=== PATIENT | female | born 1975 | race American Indian/Alaskan Native ===

== ENCOUNTER 2017-07-23 11:28 | Emergency (ER) | payer SELFPAY ==
--- NOTE | 2017-07-23 14:26 | XRay Report ---
RIGHT HAND, 3 views: History: Pain and swelling. The bony architecture is intact. Bony alignment is normal. No soft tissue abnormalities are seen. The joint spaces appear preserved. IMPRESSION: Right hand within normal limits.
--- NOTE | 2017-07-23 17:18 | Emergency Department Report ---
Upper Extremity - HPI Chief Complaint: Extremity Problem,Nontraumatic Stated Complaint: RIGHT HAND PAIN Time Seen by Provider: 07/23/17 16:40 Upper Extremity: Right Hand Severity: moderate Symptoms: Yes Pain with Movement, Yes Weakness, Yes Swelling, No Deformity, No Limited Range of Movement, No Numbness, No Bruising/Ecchymosis, No Laceration or Abrasion Other History: 42-year-old female past medical history none presents with complaint of 2 days of right hand pain swelling and discomfort. Patient denies any direct trauma. 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 Patient denies any fevers or chills denies any lacerations or abrasions. Patient is awake alert and oriented 3 nontoxic appearing. Pain currently 7 out of 10. Patient has some visible swelling of distal right third and fourth MCP regions. ED Review of Systems ROS: Stated complaint: RIGHT HAND PAIN Other details as noted in HPI Constitutional: denies: chills, fever Eyes: denies: eye pain, eye discharge, vision change ENT: denies: ear pain, throat pain Respiratory: denies: cough, shortness of breath, wheezing Cardiovascular: denies: chest pain, palpitations Endocrine: no symptoms reported Gastrointestinal: denies: abdominal pain, nausea, diarrhea Genitourinary: denies: urgency, dysuria, discharge Musculoskeletal: arthralgia (right hand since yesterday). denies: back pain, joint swelling Skin: denies: rash, lesions Neurological: denies: headache, weakness, paresthesias Psychiatric: denies: anxiety, depression Hematological/Lymphatic: denies: easy bleeding, easy bruising ED Past Medical Hx - Past Medical History Previous Medical History?: No - Surgical History Past Surgical History?: No - Social History Smoking Status: Current Every Day Smoker Substance Use Type: None - Medications Home Medications: Home Medications Medication Instructions Recorded Confirmed Last Taken Type Docusate Sodium [Colace] 100 mg PO DAILY #30 capsule 09/20/15 Unknown Rx Iron,Carbonyl/Ascorbic Acid [Iron 1 each PO BID #60 tablet 09/20/15 Unknown Rx 100-Vitamin C Tablet] Acetaminophen/Codeine [Tylenol 1 tab PO Q6H PRN #12 tab 07/23/17 Unknown Rx /Codeine # 3 tab] Clindamycin [Clindamycin CAP] 300 mg PO Q6H #28 capsule 07/23/17 Unknown Rx Ibuprofen [Motrin] 600 mg PO Q8H PRN #30 tablet 07/23/17 Unknown Rx Upper Extremity Exam - Exam General: Vital signs noted. No distress. Alert and acting appropriately. Head and Torso: No HEENT Abnormality, No Neck Tenderness, No Chest/Lungs Abnormality, No Abdominal Tenderness, No Back Tenderness Shoulder Exam: Yes Normal Range of Motion in Shoulder, No Shoulder Tenderness, No Clavicle Tenderness, No Shoulder Deformity, No AC Joint Tenderness Arm Exam: No Arm/Humerus Tenderness, No Arm Deformity Elbow: Yes Normal Range of Motion in Elbow, No Elbow Tenderness, No Elbow Deformity Forearm: No Forearm Tenderness, No Pain with Pronation, No Pain with Supination Wrist: Yes Normal ROM in Wrist (wrist flexion and extension fully intact), No Wrist Tenderness, No Wrist Deformity, No Snuffbox Tenderness, No Pain with Axial Thumb Compression Hand: Yes Hand Tenderness (some tenderness on deep palpation right second and third MCP joints), Yes Normal ROM in Digit(s) (DIP PIP and MCP range of motion intact right hand all fingers), No Hand Deformity, No Digit Tenderness (some right middle finger and right ring finger inflammation and discomfort), No Digit (s) Deformity, No Tendon Dysfunction CMS Exam: Yes Normal Distal Pulses (distal capillary refill and distal pulses strong to palpation. Distal radial brachial and ulnar pulses strong to palpation right upper extremity), Yes Normal Capillary Refill, Yes Normal Distal Sensation, No Broken Skin Hand L/R Back: 1 - Some swelling and discomfort here. No visible erythema or palpable heat. No induration on palpation no fluctuance. ED Course Vital Signs 07/23/17 11:36 Temperature 98.4 F Pulse Rate 85 Respiratory 16 Rate Blood Pressure 105/60 O2 Sat by Pulse 98 Oximetry ED Medical Decision Making - Medical Decision Making A/P: Right hand/finger tendinitis versus tenosynovitis 1-no overt signs of induration and fluctuance or large patch of erythema. Treat patient empirically based on symptoms 2-Motrin when necessary, Tylenol No. 3 when necessary, 3-empiric course of clindamycin to cover both staph aureus and strep, possible early tenosynovitis [email or web address] 4-x-ray unremarkable. Right hand neurovascularly intact on clinical exam Critical care attestation.: If time is entered above; I have spent that time in minutes in the direct care of this critically ill patient, excluding procedure time. ED Disposition Clinical Impression: Tenosynovitis of right hand, Tendinitis of finger of right hand Disposition: DC- TO HOME OR SELFCARE Is pt being admited?: No Does the pt Need Aspirin: No Condition: Stable Instructions: RICE Therapy (ED), Tenosynovitis (ED), Tendinitis (ED) Prescriptions: Acetaminophen/Codeine [Tylenol /Codeine # 3 tab] 1 tab PO Q6H PRN #12 tab PRN Reason: Pain Clindamycin [Clindamycin CAP] 300 mg PO Q6H #28 capsule Ibuprofen [Motrin] 600 mg PO Q8H PRN #30 tablet PRN Reason: Pain Referrals: [facility] [Outside] - 3-5 Days [facility] [Outside] - 3-5 Days Forms: Work/School Release Form(ED) Time of Disposition: 17:23
[2017-07-23] MEDS ORDERED: MOTRIN PO ONE (17:27)
[2017-07-23] MEDS ORDERED: NORCO 5/325 PO ONE (17:27)
[2017-07-23 17:55] VITALS: BP 108/60
== END 2017-07-23 17:54 | disposition home or self-care (01) ==
LOC: ED 11:28
DX: M65.841 Other synovitis and tenosynovitis, right hand (principal); M77.8 Other enthesopathies, not elsewhere classified; F17.200 Nicotine dependence, unspecified, uncomplicated

== ENCOUNTER 2017-11-28 11:53 | Observation (INO) | payer SELFPAY ==
[2017-11-28 12:35] LABS: Bilirubin,Urine NEG (Negative); Blood,Urine LG (Negative); Color,Urine Yellow (Yellow); Mucus,Urine FEW /HPF; Protein,Urine <15 mg/dL mg/dL (Negative); Urobilinogen,Urine < 2.0 mg/dL (<2.0)
[2017-11-28 13:05] LABS: Hemoglobin 2.5 gm/dl (10.1-14.3); Red Blood Count 1.62 M/mm3 (3.65-5.03)
[2017-11-28 13:06] LABS: Hematocrit 9.6 % (30.3-42.9); Mean Corpuscular HGB Conc 26 % (30-34); Mean Corpuscular Hemoglobin 16 pg (28-32); Mean Corpuscular Volume 59 fl (79-97); Platelet Count 50 K/mm3 (140-440); Red Cell Distribution Width 38.7 % (13.2-15.2)
[2017-11-28 13:13] LABS: Albumin 3.9 g/dL (3.9-5); BUN/Creatinine Ratio 12; Blood Urea Nitrogen 7 mg/dL (7-17); Calcium 8.5 mg/dL (8.4-10.2); Hemolysis Index 0
[2017-11-28 13:21] LABS: Alanine Aminotransferase 5 units/L (7-56)
[2017-11-28 13:40] LABS: Anisocytosis 2+; Band Neutrophils # (Manual) 0.4 K/mm3; Eosinophils % (Manual) 0 % (0.0-4.3); Hypochromasia 3+; Macrocytosis 1+; Poikilocytosis 1+; Stomatocytes 1+; Total Cells Counted 100
[2017-11-28 13:41] LABS: Ovalocytes 1+; Platelet Estimate Consistent w Auto
[2017-11-28] MEDS ORDERED: NACL 0.9% 500 ML 500 ML IV ONE (13:44)
--- NOTE | 2017-11-28 13:49 | Emergency Department Report ---
HPI - General Chief Complaint: Dizziness Time Seen by Provider: 11/28/17 12:47 - HPI HPI: The patient is a 41-year-old female who presents for evaluation of generalized weakness and dyspnea. The patient reports 4 days of severe constant weakness and intermittent dyspnea, worsened with exertion, improved at rest, present with progressive since her last menstrual period. She shares that she has a history of fibroids and severe vaginal bleeding and severe anemia requiring blood transfusion in the past. She has not expressed any vaginal bleeding within the past couple of days. The patient denies fever, chills, night sweats, chest pain, syncope, hemoptysis, hematemesis, hematuria, blood in the stool, easy bleeding or bruising, or blood thinner use. ED Past Medical Hx - Past Medical History Additional medical history: FIBROIDS AND OVARIAN CYST - Surgical History Past Surgical History?: No - Social History Smoking Status: Current Every Day Smoker Substance Use Type: None - Medications Home Medications: Home Medications Medication Instructions Recorded Confirmed Last Taken Type Docusate Sodium [Colace] 100 mg PO DAILY #30 capsule 09/20/15 Unknown Rx Iron,Carbonyl/Ascorbic Acid [Iron 1 each PO BID #60 tablet 09/20/15 Unknown Rx 100-Vitamin C Tablet] Acetaminophen/Codeine [Tylenol 1 tab PO Q6H PRN #12 tab 07/23/17 Unknown Rx /Codeine # 3 tab] Clindamycin [Clindamycin CAP] 300 mg PO Q6H #28 capsule 07/23/17 Unknown Rx Ibuprofen [Motrin] 600 mg PO Q8H PRN #30 tablet 07/23/17 Unknown Rx ED Review of Systems ROS: Stated complaint: BLURRED VISION HEAVY BLEEDING WITH CYCLE Other details as noted in HPI Constitutional: Reports generalized weakness denies: fever ENT: denies: throat or neck pain Respiratory: denies: cough reports shortness of breath Cardiovascular: denies: chest pain Endocrine: denies unexplained weight loss or gain Gastrointestinal: denies: abdominal pain, nausea Genitourinary: denies: dysuria Musculoskeletal: denies: leg swelling Skin: denies: rash Neurological: denies: headache Hematological/Lymphatic: denies: easy bleeding or easy bruising Psych: denies sadness or hopelessness Physical Exam - Physical Exam Vital Signs: Vital Signs 11/28/17 11:59 Temperature 99.6 F Pulse Rate 97 H Respiratory 16 Rate Blood Pressure 106/42 O2 Sat by Pulse 100 Oximetry Physical Exam: General: well-nourished, well-developed, no acute distress Head: Normocephalic, atraumatic Eyes: normal sclera ENT: Mucous membranes are pale and dry Neck: trachea midline, neck supple, No neck stiffness, no cervical adenopathy Respiratory: Breath sounds equal bilaterally, no wheezing, rales, or rhonchi Cardio: S1 and S2 present, no murmurs, rubs, gallops, capillary refill is delayed Abdomen: Normoactive bowel sounds, soft abdomen, no rigidity, no guarding or rebound tenderness Musc: No pitting edema Skin: No rash Neuro: no facial drooping, normal speech Psych: Normal affect ED Course Vital Signs 11/28/17 11:59 Temperature 99.6 F Pulse Rate 97 H Respiratory 16 Rate Blood Pressure 106/42 O2 Sat by Pulse 100 Oximetry ED Medical Decision Making - Lab Data Result diagrams: 11/28/17 12:30 11/28/17 12:30 - Medical Decision Making The patient was seen and examined by myself. The patient is placed on a school bus monitor and continuous pulse ox. On initial evaluation, the patient was found to be in no distress. Evaluation orders were placed. The patient given normal saline fluid bolus. Lab results reveal severely low hemoglobin of 2.5. CT shows of PRBCs were ordered for treatment of the patient's severe anemia and weakness. The on-call hospitalist service was contacted. They agreed to admit the patient for further treatment and close monitoring. The ED admit order was placed. The patient was admitted in guarded condition. Critical care attestation.: If time is entered above; I have spent that time in minutes in the direct care of this critically ill patient, excluding procedure time. ED Disposition Clinical Impression: Iron deficiency anemia due to chronic blood loss, Severe anemia, Anemia requiring transfusions Disposition: OP ADMIT IP TO THIS HOSP Is pt being admited?: Yes Does the pt Need Aspirin: Yes Condition: Serious Referrals: PRIMARY CARE, [Primary Care Provider] - 3-5 Days Time of Disposition: 13:22
[2017-11-28] MEDS ORDERED: NACL 0.9% 1000 ML 1,000 ML IV ONE (13:55)
[2017-11-28 13:57] LABS: Mean Corpuscular HGB Conc 27 % (30-34); Red Blood Count 1.68 M/mm3 (3.65-5.03)
[2017-11-28 14:03] LABS: Mean Corpuscular Hemoglobin 16 pg (28-32); Mean Corpuscular Volume 59 fl (79-97); Platelet Count 49 K/mm3 (140-440); Red Cell Distribution Width 38.7 % (13.2-15.2)
[2017-11-28 14:07] LABS: Hematocrit 9.9 % (30.3-42.9); Hemoglobin 2.7 gm/dl (10.1-14.3)
--- NOTE | 2017-11-28 14:39 | History and Physical Report ---
History of Present Illness Chief complaint: I feel weak History of present illness: 41 YO Female with Uterine Fibroids, Menorrhagia, Anemia, Noncompliance with Iron therapy, Nicotine Dependence ETOH Dependence presents to ED for evaluation. Pt found to have anemia and treated with PRBC and platelet transfusion in ED. Pt medically optimized and back to usual state of health. Pt counseled regarding need for hysterectomy, or definitive treatment for fibroids , as well as the need for iron therapy. Pt acknowledges understanding instructions. Pt discharged home and instructed to f/u pcp 1wk, [facility] 1 wk for further care. Past History Past Medical History: anemia, other (Fibroids. ) Past Surgical History: No surgical history, Other (reviewed) Social history: single, smoking Family history: no significant family history (reviewed) Medications and Allergies Allergies Allergy/AdvReac Type Severity Reaction Status Date / Time No Known Allergies Allergy Verified 11/28/17 11:59 Home Medications Medication Instructions Recorded Confirmed Last Taken Type Ferrous Sulfate [Ferrous Sulfate 300 mg PO BID #300 ml 11/28/17 Unknown Rx Oral Liq 300 Mg/5 Ml] Sennosides/Docusate Sodium 1 each PO BID #30 tablet 11/28/17 Unknown Rx [Senna-Docusate Sodium Tablet] Active Meds: Active Medications Sodium Chloride (Nacl 0.9% 1000 Ml) 1,000 mls @ 999 mls/hr IV BOLUS ONE Stop: 11/28/17 14:55 Review of Systems Constitutional: weakness, no weight loss, no weight gain, no fever, no chills, no sweats, no night sweats Ears, nose, mouth and throat: no ear pain, no ear discharge, no tinnitis, no decreased hearing, no nose pain, no nasal congestion, no nasal discharge, no sinus pressure Breasts: no change in shape, no swelling, no mass Cardiovascular: no chest pain, no orthopnea, no palpitations, no rapid/ irregular heart beat, no edema, no syncope Respiratory: shortness of breath, no cough, no cough with sputum, no excessive sputum, no hemoptysis Gastrointestinal: no nausea, no vomiting, no diarrhea, no constipation, no change in bowel habits Genitourinary Female: menorrhagia, no dysmenorrhea, no pelvic pain, no flank pain, no nocturia, no vaginal itching, no vaginal discharge, no vaginal odor, no abnormal vaginal bleeding, no genital sores, no vaginal dryness Rectal: no pain, no incontinence, no bleeding Musculoskeletal: no neck stiffness, no neck pain, no shooting arm pain, no arm numbness/tingling, no low back pain, no shooting leg pain Integumentary: no rash, no pruritis, no redness, no sores, no wounds, no jaundice, no boils Neurological: no head injury, no transient paralysis, no paralysis, no weakness , no parathesias, no numbness, no tingling, no seizures Psychiatric: no anxiety, no memory loss, no change in sleep habits, no sleep disturbances, no insomnia, no hypersomnia, no change in appetite Endocrine: no cold intolerance, no heat intolerance, no polyphagia, no excessive thirst, no polydipsia, no polyuria, no nocturia Hematologic/Lymphatic: no easy bruising, no easy bleeding, no lymphadenopathy, no lymphedema Allergic/Immunologic: no urticaria, no allergic rhinitis, no wheezing, no persistent infections, no anaphylaxis, no angioedema Exam - Constitutional Vitals: Temp Pulse Resp BP Pulse Ox 99.6 F 97 H 16 106/42 100 11/28/17 11:59 11/28/17 11:59 11/28/17 11:59 11/28/17 11:59 11/28/17 11:59 General appearance: Present: mild distress - EENT Eyes: Present: PERRL (conjunctival pallor) ENT: hearing intact, clear oral mucosa - Neck Neck: Present: supple, normal ROM - Respiratory Respiratory effort: normal Respiratory: bilateral: CTA - Cardiovascular Heart Sounds: Present: S1 & S2. Absent: rub, click - Extremities Extremities: pulses symmetrical, No edema Peripheral Pulses: within normal limits - Abdominal General gastrointestinal: Present: soft, non-tender, non-distended, normal bowel sounds Female genitourinary: Present: normal - Integumentary Integumentary: Present: clear, warm, dry - Musculoskeletal Musculoskeletal: gait normal, strength equal bilaterally - Psychiatric Psychiatric: appropriate mood/affect, intact judgment & insight - Neurologic Neurologic: CNII-XII intact, moves all extremities Results - Labs CBC & Chem 7: 11/28/17 13:15 11/28/17 12:30 Labs: Abnormal lab results 11/28/17 11/28/17 11/28/17 Range/Units 12:30 12:30 12:30 RBC 1.62 L (3.65-5.03) M/mm3 Hgb 2.5 L* (10.1-14.3) gm/dl Hct 9.6 L* (30.3-42.9) % MCV 59 L (79-97) fl MCH 16 L (28-32) pg MCHC 26 L (30-34) % RDW 38.7 H (13.2-15.2) % Plt Count 50 L (140-440) K/mm3 Monocytes % (Manual) 10.0 H (0.0-7.3) % Basophils % (Manual) 4.0 H (0.0-1.8) % Basophils # (Manual) 0.3 H (0.0-0.1) K/mm3 Sodium 136 L (137-145) mmol/L Potassium 3.2 L (3.6-5.0) mmol/L Creatinine 0.6 L (0.7-1.2) mg/dL ALT 5 L (7-56) units/L Crossmatch See Detail 11/28/17 Range/Units 13:15 RBC 1.68 L (3.65-5.03) M/mm3 Hgb 2.7 L* (10.1-14.3) gm/dl Hct 9.9 L* (30.3-42.9) % MCV 59 L (79-97) fl MCH 16 L (28-32) pg MCHC 27 L (30-34) % RDW 38.7 H (13.2-15.2) % Plt Count 49 L (140-440) K/mm3 Monocytes % (Manual) (0.0-7.3) % Basophils % (Manual) (0.0-1.8) % Basophils # (Manual) (0.0-0.1) K/mm3 Sodium (137-145) mmol/L Potassium (3.6-5.0) mmol/L Creatinine (0.7-1.2) mg/dL ALT (7-56) units/L Crossmatch Assessment and Plan - Patient Problems (1) Anemia requiring transfusions Current Visit: Yes Status: Acute Plan to address problem: PRBC Transfusion, Platelet Transfusion, D/C home, f/u [facility] within 1 wk for further care and evaluation. (2) Iron deficiency anemia due to chronic blood loss Current Visit: Yes Status: Chronic Plan to address problem: Iron replacement therapy, stool softener, (3) Uterine leiomyoma Current Visit: No Status: Chronic Qualifiers: Uterine leiomyoma location: unspecified location Qualified Code(s): D25.9 - Leiomyoma of uterus, unspecified Plan to address problem: Outpatient [facility] F/U care.
[2017-11-28] MEDS ORDERED: NACL 0.9% 500 ML 500 ML IV NR (14:41)
[2017-11-29 00:50] LABS: Hematocrit 22.6 % (30.3-42.9); Hemoglobin 7.4 gm/dl (10.1-14.3); Mean Corpuscular HGB Conc 33 % (30-34); Mean Corpuscular Volume 77 fl (79-97); Red Blood Count 2.93 M/mm3 (3.65-5.03)
[2017-11-29 01:05] LABS: Mean Corpuscular Hemoglobin 25 pg (28-32); Platelet Count 63 K/mm3 (140-440); Red Cell Distribution Width 33.9 % (13.2-15.2)
[2017-11-29] MEDS ORDERED: TYLENOL PO PRN ×2 (01:26→05:55)
[2017-11-29 03:12] LABS: Anisocytosis 1+; Band Neutrophils # (Manual) 0.5 K/mm3; Basophils % (Manual) 0 % (0.0-1.8); Eosinophils % (Manual) 0 % (0.0-4.3); Hypochromasia 2+; Total Cells Counted 100
[2017-11-29 03:13] LABS: Platelet Estimate Consistent w Auto
[2017-11-29] MEDS ORDERED: MORPHINE IV PRN (05:55)
[2017-11-29] MEDS ORDERED: SODIUM CHLORIDE FLUSH SYRINGE 10 ML IV PRN (05:55)
[2017-11-29] MEDS ORDERED: PERCOCET 5/325 PO PRN (05:55)
[2017-11-29] MEDS ORDERED: ZOFRAN IV PRN (05:55)
--- NOTE | 2017-11-29 05:55 | Event Note ---
Date: 11/28/17 Patient was discharged by Dr Nassar B/c of Low Hemoglobin and Corporation Lawyer consult patient was admitted See H/P
[2017-11-29] MEDS ORDERED: NACL 0.9% 1000 ML 1,000 ML IV SCH (06:00)
[2017-11-29 06:48] LABS: Hematocrit 22.8 % (30.3-42.9); Hemoglobin 7.5 gm/dl (10.1-14.3); Mean Corpuscular HGB Conc 33 % (30-34); Mean Corpuscular Volume 77 fl (79-97); Red Blood Count 2.98 M/mm3 (3.65-5.03)
[2017-11-29 07:04] LABS: Mean Corpuscular Hemoglobin 25 pg (28-32); Red Cell Distribution Width 32.8 % (13.2-15.2)
[2017-11-29 07:05] LABS: Platelet Count 49 K/mm3 (140-440)
[2017-11-29 07:12] LABS: Alanine Aminotransferase 56 units/L (7-56); Albumin 3.6 g/dL (3.9-5); BUN/Creatinine Ratio 13; Blood Urea Nitrogen 5 mg/dL (7-17); Calcium 7.9 mg/dL (8.4-10.2); Hemolysis Index 1
[2017-11-29] MEDS ORDERED: K-DUR PO ONE (07:59)
--- NOTE | 2017-11-29 08:11 | Progress Note ---
Assessment and Plan Assessment and plan: Ms. Overton is a 41 yo woman with a history of chronic anemia, uterine Fibroids, Menorrhagia, Noncompliance with Iron therapy, Nicotine Dependence and ETOH Dependence who presented with weakness and [place]. She was found to have a hemoglobin of 2.5 with a MCV of 59, platelet count of 49. She was also hypotensive with bp 88/45 which she received normal saline IV fluid resuscitation bolus. She has received 4 units of prbc and 1 unit of platelet -Acute on chronic blood loss anemia: ordered FOBT, will transfuse another unit of prbc -Menorrhagia: consulted occ ther -Tobacco dependency: intellectual property counsel on stopping -Alcohol dependency: ciky protocol -Uterine Fibroids: pelvic and transvaginal u/s pending -Hypotension s/p fluid bolus resolved -Hypokalemia: replace, recheck in am -Thrombocytopenia s/p plt transfusion: consulted heme/onc -Suspect Iron Deficiency Anemia: ordered iron studies and ferritin CCT 32 minutes History Interval history: Patient was seen and examined. Follow-up on current diagnosis. Overnight uneventful. Patient denies any chest pain, shortness breath, nausea/vomiting or severe headaches. Imaging, nursing note, chart, labs and old chart reviewed. Discussed with patient. Hospitalist Physical - Physical exam Narrative exam: GEN: WDWN, NAD, Awake, Alert, Orientated x 3 HEENT: NCAT, EOMI, PERRL, OP Clear NECK: supple, no adenopathy, no thyromegaly, no JVD CVS/HEART: RRR, normal S1S2, pulses present bilaterally CHEST/LUNGS: CTA B, Symmetrical chest expansion, good air entry bilaterally GI/Abdomen: soft, NTND, good bowel sounds, no guarding or rebound /Bladder: no suprapubic tenderness, no CVA or paraspinal tenderness EXT/Skin: no c/c/e, no obvious rash MSK: FROM x 4 Neuro: CN 2-12 grossly intact, no new focal deficits Psych: calm - Constitutional Vitals: Temp Pulse Resp BP Pulse Ox 99.5 F 71 18 125/72 100 11/29/17 01:29 11/29/17 01:29 11/29/17 01:29 11/29/17 01:29 11/29/17 01:29 General appearance: Absent: mild distress Results - Labs CBC & Chem 7: 11/29/17 06:23 11/29/17 06:23 Labs: Laboratory Last Values WBC 7.2 K/mm3 (4.5-11.0) 11/29/17 06:23 RBC 2.98 M/mm3 (3.65-5.03) L 11/29/17 06:23 Hgb 7.5 gm/dl (10.1-14.3) L 11/29/17 06:23 Hct 22.8 % (30.3-42.9) L 11/29/17 06:23 MCV 77 fl (79-97) L 11/29/17 06:23 MCH 25 pg (28-32) L 11/29/17 06:23 MCHC 33 % (30-34) 11/29/17 06:23 RDW 32.8 % (13.2-15.2) H 11/29/17 06:23 Plt Count 49 K/mm3 (140-440) L 11/29/17 06:23 Baso % (Auto) Budget Controller 11/29/17 06:23 Add Manual Diff Complete 11/29/17 00:43 Total Counted 100 11/29/17 00:43 Seg Neuts % (Manual) 78.0 % (40.0-70.0) H 11/29/17 00:43 Band Neutrophils % 5.0 % 11/29/17 00:43 Lymphocytes % (Manual) 14.0 % (13.4-35.0) 11/29/17 00:43 Reactive Lymphs % (Man) 0 % 11/29/17 00:43 Monocytes % (Manual) 3.0 % (0.0-7.3) 11/29/17 00:43 Eosinophils % (Manual) 0 % (0.0-4.3) 11/29/17 00:43 Basophils % (Manual) 0 % (0.0-1.8) 11/29/17 00:43 Metamyelocytes % 0 % 11/29/17 00:43 Myelocytes % 0 % 11/29/17 00:43 Promyelocytes % 0 % 11/29/17 00:43 Blast Cells % 0 % 11/29/17 00:43 Nucleated RBC % Not Reportable 11/29/17 00:43 Seg Neutrophils # Man 7.1 K/mm3 (1.8-7.7) 11/29/17 00:43 Band Neutrophils # 0.5 K/mm3 11/29/17 00:43 Lymphocytes # (Manual) 1.3 K/mm3 (1.2-5.4) 11/29/17 00:43 Abs React Lymphs (Man) 0.0 K/mm3 11/29/17 00:43 Monocytes # (Manual) 0.3 K/mm3 (0.0-0.8) 11/29/17 00:43 Eosinophils # (Manual) 0.0 K/mm3 (0.0-0.4) 11/29/17 00:43 Basophils # (Manual) 0.0 K/mm3 (0.0-0.1) 11/29/17 00:43 Metamyelocytes # 0.0 K/mm3 11/29/17 00:43 Myelocytes # 0.0 K/mm3 11/29/17 00:43 Promyelocytes # 0.0 K/mm3 11/29/17 00:43 Blast Cells # 0.0 K/mm3 11/29/17 00:43 WBC Morphology Not Reportable 11/29/17 00:43 Hypersegmented Neuts Not Reportable 11/29/17 00:43 Hyposegmented Neuts Not Reportable 11/29/17 00:43 Hypogranular Neuts Not Reportable 11/29/17 00:43 Smudge Cells Not Reportable 11/29/17 00:43 Toxic Granulation Not Reportable 11/29/17 00:43 Toxic Vacuolation Not Reportable 11/29/17 00:43 Dohle Bodies Not Reportable 11/29/17 00:43 Pelger-Huet Anomaly Not Reportable 11/29/17 00:43 Tim Rods Not Reportable 11/29/17 00:43 Platelet Estimate Consistent w auto 11/29/17 00:43 Clumped Platelets Not Reportable 11/29/17 00:43 Plt Clumps, EDTA Not Reportable 11/29/17 00:43 Large Platelets Not Reportable 11/29/17 00:43 Giant Platelets Not Reportable 11/29/17 00:43 Platelet Satelliting Not Reportable 11/29/17 00:43 Plt Morphology Comment Not Reportable 11/29/17 00:43 RBC Morphology Not Reportable 11/29/17 00:43 Dimorphic RBCs Not Reportable 11/29/17 00:43 Polychromasia Not Reportable 11/29/17 00:43 Hypochromasia 2+ 11/29/17 00:43 Poikilocytosis Not Reportable 11/29/17 00:43 Anisocytosis 1+ 11/29/17 00:43 Microcytosis Not Reportable 11/29/17 00:43 Macrocytosis Not Reportable 11/29/17 00:43 Spherocytes Not Reportable 11/29/17 00:43 Pappenheimer Bodies Not Reportable 11/29/17 00:43 Sickle Cells Not Reportable 11/29/17 00:43 Target Cells Not Reportable 11/29/17 00:43 Tear Drop Cells Not Reportable 11/29/17 00:43 Ovalocytes Not Reportable 11/29/17 00:43 Stomatocytes 1+ 11/28/17 12:30 Helmet Cells Not Reportable 11/29/17 00:43 [place] Bodies Not Reportable 11/29/17 00:43 [place] Rings Not Reportable 11/29/17 00:43 [place] Cells Not Reportable 11/29/17 00:43 Bite Cells Not Reportable 11/29/17 00:43 Crenated Cell Not Reportable 11/29/17 00:43 Elliptocytes Not Reportable 11/29/17 00:43 Acanthocytes (Spur) Not Reportable 11/29/17 00:43 Rouleaux Not Reportable 11/29/17 00:43 Hemoglobin C Crystals Not Reportable 11/29/17 00:43 Schistocytes Not Reportable 11/29/17 00:43 Malaria parasites Not Reportable 11/29/17 00:43 Justo Bodies Not Reportable 11/29/17 00:43 Hem Pathologist Commnt No 11/29/17 00:43 Sodium 138 mmol/L (137-145) 11/29/17 06:23 Potassium 3.3 mmol/L (3.6-5.0) L 11/29/17 06:23 Chloride 104.8 mmol/L (98-107) 11/29/17 06:23 Carbon Dioxide 20 mmol/L (22-30) L 11/29/17 06:23 Anion Gap 17 mmol/L 11/29/17 06:23 BUN 5 mg/dL (7-17) L 11/29/17 06:23 Creatinine 0.4 mg/dL (0.7-1.2) L 11/29/17 06:23 Estimated GFR > 60 ml/min 11/29/17 06:23 BUN/Creatinine Ratio 13 % 11/29/17 06:23 Glucose 94 mg/dL (65-100) 11/29/17 06:23 Calcium 7.9 mg/dL (8.4-10.2) L 11/29/17 06:23 Total Bilirubin 1.00 mg/dL (0.1-1.2) 11/29/17 06:23 AST 127 units/L (5-40) H 11/29/17 06:23 ALT 56 units/L (7-56) 11/29/17 06:23 Alkaline Phosphatase 88 units/L (35-129) 11/29/17 06:23 Total Protein 6.7 g/dL (6.3-8.2) 11/29/17 06:23 Albumin 3.6 g/dL (3.9-5) L 11/29/17 06:23 Albumin/Globulin Ratio 1.2 % 11/29/17 06:23 HCG, Quant < 2 mIU/mL (0-4) 11/28/17 12:30 Urine Color Yellow (Yellow) 11/28/17 12:08 Urine Turbidity Clear (Clear) 11/28/17 12:08 Urine pH 5.0 (5.0-7.0) 11/28/17 12:08 Ur Specific [place] 1.011 (1.003-1.030) 11/28/17 12:08 Urine Protein <15 mg/dl mg/dL (Negative) 11/28/17 12:08 Urine Glucose (UA) Neg mg/dL (Negative) 11/28/17 12:08 Urine Ketones Neg mg/dL (Negative) 11/28/17 12:08 Urine Blood Lg (Negative) 11/28/17 12:08 Urine Nitrite Neg (Negative) 11/28/17 12:08 Urine Bilirubin Neg (Negative) 11/28/17 12:08 Urine Urobilinogen < 2.0 mg/dL (<2.0) 11/28/17 12:08 Ur Leukocyte Esterase Neg (Negative) 11/28/17 12:08 Urine WBC (Auto) 5.0 /HPF (0.0-6.0) 11/28/17 12:08 Urine RBC (Auto) 27.0 /HPF (0.0-6.0) 11/28/17 12:08 U Epithel Cells (Auto) 1.0 /HPF (0-13.0) 11/28/17 12:08 Urine Mucus Few /HPF 11/28/17 12:08 Blood Type A POSITIVE 11/28/17 12:30 Antibody Screen Negative 11/28/17 12:30 Crossmatch See Detail 11/28/17 12:30
[2017-11-29 08:52] LABS: Anisocytosis 2+; Basophils % (Manual) 0 % (0.0-1.8); Hypochromasia 2+; Macrocytosis 1+; Total Cells Counted 100
[2017-11-29 08:53] LABS: Ovalocytes Few; Platelet Estimate Consistent w Auto; Schistocytes Rare; Tear Drop Cells Few
[2017-11-29 09:09] LABS: Iron 56 ug/dL (37-170); Total Iron Binding Capacity 320 mcg/dL (250-450)
--- NOTE | 2017-11-29 09:39 | Event Note ---
Date: 11/29/17 Came to see pt and she is not in the room.Will return when she is back in the room
[2017-11-29] MEDS ORDERED: PEPCID IV SCH (10:00)
[2017-11-29] MEDS: SODIUM CHLORIDE FLUSH SYRINGE 10 ML IV SCH ×2 (11:00→21:32)
--- NOTE | 2017-11-29 11:41 | Ultrasound Report ---
TRANSABDOMINAL AND TRANSVAGINAL PELVIC ULTRASOUND: 11/28/17 23:53:00 CLINICAL: Menorrhagia. Known fibroids. COMPARISON: CT pelvis 04/21/14 FINDINGS: Transabdominal and transvaginal pelvic ultrasound demonstrated a greatly enlarged fibroid uterus measuring at least 16.2 x 9.5 x 10.6 cm. This is probably an underestimation of the uterine size based on the comparison CT and the uterus measured 20.5 x 10.0 x 14.0 cm. The largest fibroid is an anterior fundal intramural fibroid measuring 7.4 x 7.2 x 8.4 cm. Additional intramural and subserosal fibroids measure 6.3 x 6.0 x 7.6 cm, 5.0 x 3.4 x 4.8 cm, 3.7 x 4.0 x 2.9 cm and 4.5 x 2.7 x 4.5 cm. The endometrium was not identified for measurement. A right ovary was not identified. A normal left ovary measures 3.0 x 2.7 x 3.1 cm. No adnexal mass. No free fluid. Normal urinary bladder. IMPRESSION: A greatly enlarged fibroid uterus with underestimation of uterine size by ultrasound. CT or MRI would be more helpful inaccurate measurement of the uterus. Normal left ovary and no right ovary identified.
[2017-11-29] MEDS ORDERED: NACL 0.9% 500 ML 500 ML IV ONE (14:00)
--- NOTE | 2017-11-29 15:54 | Consultation ---
History of Present Illness Consult date: 11/29/17 Requesting physician: BIANCA SINHA Reason for consult: menorrhagia, other (anemia) History of present illness: 41 y/o known to Dr. Salazar and myobgyn practice due to being seen in 2013 for fibroids and bleeding. She was to f/u in the office outpt for removal of the fibroids, but has not been seen and was lost to f/u.in 2013 she had a normal pap, negative HPV, normal endometrial biopsy. H/H was 8.7/29.6 and platele count at this time was elevated at 530. Pt continues to have vaginal bleeding that is prolonged and heavy. Hiv Nurse consulted regarding pt anemia, h/o menorrhagia and fibroids. Pt is not having bleeding at this time. Past History Past Medical History: blood transfusion, other Past Surgical History: no surgical history SURFACER History: other (pt states pap last year with another provider was normal) Family/Genetic History: none Social history: no significant social history, smoking - Obstetrical History : 1 Para: 1 Number of Living Children: 1 Medications and Allergies Allergies Allergy/AdvReac Type Severity Reaction Status Date / Time No Known Allergies Allergy Verified 11/28/17 11:59 Home Medications Medication Instructions Recorded Confirmed Last Taken Type Ferrous Sulfate [Ferrous Sulfate 300 mg PO BID #300 ml 11/28/17 Unknown Rx Oral Liq 300 Mg/5 Ml] Sennosides/Docusate Sodium 1 each PO BID #30 tablet 11/28/17 Unknown Rx [Senna-Docusate Sodium Tablet] Active Meds: Active Medications Acetaminophen (Tylenol) 650 mg PO Q4H PRN PRN Reason: Pain MILD(1-3)/Fever >100.5/CURRIE Morphine Sulfate (Morphine) 2 mg IV Q4H PRN PRN Reason: Pain, Moderate (4-6) Ondansetron HCl (Zofran) 4 mg IV Q8H PRN PRN Reason: Nausea And Vomiting Oxycodone/Acetaminophen (Percocet 5/325) 1 tab PO Q6H PRN PRN Reason: Pain, Moderate (4-6) Sodium Chloride (Sodium Chloride Flush Syringe 10 Ml) 10 ml IV BID VICKI Last Admin: 11/29/17 11:00 Dose: 10 ml Sodium Chloride (Sodium Chloride Flush Syringe 10 Ml) 10 ml IV PRN PRN PRN Reason: LINE FLUSH Review of Systems All systems: negative - Vital Signs Vital signs: Vital Signs Temp Pulse Resp BP Pulse Ox 99.6 F 97 H 16 106/42 100 11/28/17 11:59 11/28/17 11:59 11/28/17 11:59 11/28/17 11:59 11/28/17 11:59 Temp Pulse Resp BP Pulse Ox 99.5 F 72 18 121/78 98 11/29/17 15:25 11/29/17 15:25 11/29/17 15:25 11/29/17 15:25 11/29/17 07:39 - Physical Exam Cardiovascular: Normal S1, Normal S2 Lungs: Positive: Normal air movement Abdomen: Positive: normal appearance, soft, other (mass palpated 2 finger breaths above the umbilicus more on the left side than the right. ) Genitourinary (Female): Positive: other (deferred as she is not bleeding) Uterus: Positive: other (enlarged, irregular contouor c/w fibroids) Extremities: Positive: normal. Negative: tenderness, edema Deep Tendon Reflex Grade: Normal +2 Results Result Diagrams: 11/29/17 06:23 11/29/17 06:23 Abnormal lab results 11/28/17 11/29/17 11/29/17 Range/Units 12:30 00:43 06:23 RBC 2.93 L 2.98 L (3.65-5.03) M/mm3 Hgb 7.4 L D 7.5 L (10.1-14.3) gm/dl Hct 22.6 L D 22.8 L (30.3-42.9) % MCV 77 L 77 L (79-97) fl MCH 25 L 25 L (28-32) pg RDW 33.9 H 32.8 H (13.2-15.2) % Plt Count 63 L 49 L (140-440) K/mm3 Seg Neuts % (Manual) 78.0 H 80.0 H (40.0-70.0) % Lymphocytes % (Manual) 11.0 L (13.4-35.0) % Monocytes % (Manual) 8.0 H (0.0-7.3) % Lymphocytes # (Manual) 0.8 L (1.2-5.4) K/mm3 Potassium (3.6-5.0) mmol/L Carbon Dioxide (22-30) mmol/L BUN (7-17) mg/dL Creatinine (0.7-1.2) mg/dL Calcium (8.4-10.2) mg/dL Ferritin (13.0-400.0) ng/mL AST (5-40) units/L Albumin (3.9-5) g/dL Crossmatch See Detail 11/29/17 11/29/17 Range/Units 06:23 08:23 RBC (3.65-5.03) M/mm3 Hgb (10.1-14.3) gm/dl Hct (30.3-42.9) % MCV (79-97) fl MCH (28-32) pg RDW (13.2-15.2) % Plt Count (140-440) K/mm3 Seg Neuts % (Manual) (40.0-70.0) % Lymphocytes % (Manual) (13.4-35.0) % Monocytes % (Manual) (0.0-7.3) % Lymphocytes # (Manual) (1.2-5.4) K/mm3 Potassium 3.3 L (3.6-5.0) mmol/L Carbon Dioxide 20 L (22-30) mmol/L BUN 5 L (7-17) mg/dL Creatinine 0.4 L (0.7-1.2) mg/dL Calcium 7.9 L (8.4-10.2) mg/dL Ferritin 10.5 L (13.0-400.0) ng/mL AST 127 H (5-40) units/L Albumin 3.6 L (3.9-5) g/dL Crossmatch All other labs normal. Assessment and Plan - Patient Problems (1) Anemia requiring transfusions Current Visit: Yes Status: Acute Plan to address problem: -currently getting unit #5 of PRBCs -states she is feeling much better. (2) Uterine leiomyoma Current Visit: No Status: Chronic Qualifiers: Uterine leiomyoma location: unspecified location Qualified Code(s): D25.9 - Leiomyoma of uterus, unspecified Plan to address problem: -stressed to pt the importance of follow as an out pt. She has been d/w Dr. Salazar and it is agreed that the completion of her work up can be done as an out pt. She will need: -pap -endometiral bx -saline infused sonogram -correction of the severe anemia -work up by heme/onc due to the thrombocytopenia as well as corrections of this -all would need to be completed before surgery would be consiered -she desires NEELA. All risk, benefits and alternatives were d/w pt as well as medical therapies. She is not currently bleeding so no medication is recommended at this time. I did d/w starting depo provera in prevention of heavy bleeding for next menses and she declines at this time due to having a previous episode of bleeding with placement of norplant device at at 16. She has not had any hormonal therapy since this time. Previously she was prescribed lysteada but has not taken since 2013 if at that time. -Pt does not have any immediate splunk developer concerns that can't be addressed as an outpt so will sign off at this time. Thanks for the consultation. Please re consult if needed. (3) Thrombocytopenia Current Visit: Yes Status: Acute Plan to address problem: -thus far has not responded to the transfusion -will defer management to primary team and heme/onc
--- NOTE | 2017-11-29 21:23 | Consultation ---
History of Present Illness - Reason for Consult Consult date: 11/29/17 anemia/thrombocytopenia. Requesting physician: BIANCA SINHA - History of Present Illness Thank you for this consults, patient seen/examined, records reviewed, case d/w patient. she presented with syncopal episode, w/up reveals severe, sxs anemia, from abnormal uterine bleeding, acute on chronic. She has gotten total of 5units PRBC since admitted.I have reviewed the WRECKING CAR DRIVER notes. Patient s cytopenia is all WRECKING CAR DRIVER related. What she needs now is some hormone therapy, and mostly need some form of insurance coverage so, she can have surgery of fibroid removal.education site manager to assist with emergency medicaid, or she will continue to revolve through the ER doors, and may not be fortunate the next time. Her admission hgb is almost incompatible with life.Will check her iron, level , and will need iron tabs upon d/c for the meantime. Past History Past Medical History: anemia, other (Fibroids. ) Past Surgical History: No surgical history, Other (reviewed) Social history: no significant social history, smoking Family history: no significant family history (reviewed) Medications and Allergies Allergies Allergy/AdvReac Type Severity Reaction Status Date / Time No Known Allergies Allergy Verified 11/28/17 11:59 Home Medications Medication Instructions Recorded Confirmed Last Taken Type Ferrous Sulfate [Ferrous Sulfate 300 mg PO BID #300 ml 11/28/17 Unknown Rx Oral Liq 300 Mg/5 Ml] Sennosides/Docusate Sodium 1 each PO BID #30 tablet 11/28/17 Unknown Rx [Senna-Docusate Sodium Tablet] Active Meds: Active Medications Acetaminophen (Tylenol) 650 mg PO Q4H PRN PRN Reason: Pain MILD(1-3)/Fever >100.5/CURRIE Morphine Sulfate (Morphine) 2 mg IV Q4H PRN PRN Reason: Pain, Moderate (4-6) Ondansetron HCl (Zofran) 4 mg IV Q8H PRN PRN Reason: Nausea And Vomiting Oxycodone/Acetaminophen (Percocet 5/325) 1 tab PO Q6H PRN PRN Reason: Pain, Moderate (4-6) Last Admin: 11/29/17 16:10 Dose: 1 tab Sodium Chloride (Sodium Chloride Flush Syringe 10 Ml) 10 ml IV BID VICKI Last Admin: 11/29/17 11:00 Dose: 10 ml Sodium Chloride (Sodium Chloride Flush Syringe 10 Ml) 10 ml IV PRN PRN PRN Reason: LINE FLUSH Review of Systems Breasts: deferred Exam - Constitutional Vitals: Temp Pulse Resp BP Pulse Ox 100.0 F H 74 19 111/75 98 11/29/17 16:25 11/29/17 16:25 11/29/17 16:25 11/29/17 16:25 11/29/17 16:24 General appearance: Present: mild distress, well-nourished - EENT Eyes: Present: PERRL ENT: hearing intact, clear oral mucosa - Neck Neck: Present: supple, normal ROM - Respiratory Respiratory effort: normal Respiratory: bilateral: CTA - Cardiovascular Heart Sounds: Present: S1 & S2. Absent: rub, click - Extremities Extremities: pulses symmetrical, No edema Peripheral Pulses: within normal limits - Abdominal General gastrointestinal: Present: soft, non-tender, non-distended, normal bowel sounds Female genitourinary: Present: deferred - Rectal Rectal Exam: deferred - Integumentary Integumentary: Present: clear, warm, dry - Musculoskeletal Musculoskeletal: gait normal, strength equal bilaterally - Psychiatric Psychiatric: appropriate mood/affect, intact judgment & insight - Neurologic Neurologic: CNII-XII intact, moves all extremities Results - Labs CBC & Chem 7: 11/29/17 06:23 11/29/17 06:23 Labs: Abnormal lab results 11/28/17 11/29/17 11/29/17 Range/Units 12:30 00:43 06:23 RBC 2.93 L 2.98 L (3.65-5.03) M/mm3 Hgb 7.4 L D 7.5 L (10.1-14.3) gm/dl Hct 22.6 L D 22.8 L (30.3-42.9) % MCV 77 L 77 L (79-97) fl MCH 25 L 25 L (28-32) pg RDW 33.9 H 32.8 H (13.2-15.2) % Plt Count 63 L 49 L (140-440) K/mm3 Seg Neuts % (Manual) 78.0 H 80.0 H (40.0-70.0) % Lymphocytes % (Manual) 11.0 L (13.4-35.0) % Monocytes % (Manual) 8.0 H (0.0-7.3) % Lymphocytes # (Manual) 0.8 L (1.2-5.4) K/mm3 Potassium (3.6-5.0) mmol/L Carbon Dioxide (22-30) mmol/L BUN (7-17) mg/dL Creatinine (0.7-1.2) mg/dL Calcium (8.4-10.2) mg/dL Ferritin (13.0-400.0) ng/mL AST (5-40) units/L Albumin (3.9-5) g/dL Crossmatch See Detail 11/29/17 11/29/17 Range/Units 06:23 08:23 RBC (3.65-5.03) M/mm3 Hgb (10.1-14.3) gm/dl Hct (30.3-42.9) % MCV (79-97) fl MCH (28-32) pg RDW (13.2-15.2) % Plt Count (140-440) K/mm3 Seg Neuts % (Manual) (40.0-70.0) % Lymphocytes % (Manual) (13.4-35.0) % Monocytes % (Manual) (0.0-7.3) % Lymphocytes # (Manual) (1.2-5.4) K/mm3 Potassium 3.3 L (3.6-5.0) mmol/L Carbon Dioxide 20 L (22-30) mmol/L BUN 5 L (7-17) mg/dL Creatinine 0.4 L (0.7-1.2) mg/dL Calcium 7.9 L (8.4-10.2) mg/dL Ferritin 10.5 L (13.0-400.0) ng/mL AST 127 H (5-40) units/L Albumin 3.6 L (3.9-5) g/dL Crossmatch Assessment and Plan - Patient Problems (1) Anemia requiring transfusions Current Visit: Yes Status: Acute Plan to address problem: see notes. (2) Severe anemia Current Visit: Yes Status: Acute Plan to address problem: see notes. (3) Thrombocytopenia Current Visit: Yes Status: Acute Plan to address problem: This is due to acute blood loss.expect to recover as hgb improves. (4) Iron deficiency anemia due to chronic blood loss Current Visit: Yes Status: Chronic Plan to address problem: see notes above. (5) Premenopausal menorrhagia Current Visit: No Status: Chronic Plan to address problem: see notes above. (6) Uterine leiomyoma Current Visit: No Status: Chronic Qualifiers: Uterine leiomyoma location: unspecified location Qualified Code(s): D25.9 - Leiomyoma of uterus, unspecified Plan to address problem: See notes above.
[2017-11-30 06:53] LABS: Hematocrit 25.4 % (30.3-42.9); Hemoglobin 8.6 gm/dl (10.1-14.3); Mean Corpuscular HGB Conc 34 % (30-34); Mean Corpuscular Hemoglobin 26 pg (28-32); Mean Corpuscular Volume 77 fl (79-97)
[2017-11-30 07:10] LABS: Alanine Aminotransferase 34 units/L (7-56); Albumin 3.7 g/dL (3.9-5); BUN/Creatinine Ratio 8; Blood Urea Nitrogen 3 mg/dL (7-17); Calcium 8.1 mg/dL (8.4-10.2); Hemolysis Index 5
[2017-11-30 07:11] LABS: Platelet Count 88 K/mm3 (140-440); Red Cell Distribution Width 32.5 % (13.2-15.2)
[2017-11-30 07:46] VITALS: BP 108/71
[2017-11-30 08:01] LABS: Band Neutrophils # (Manual) 0.6 K/mm3; Basophils % (Manual) 0 % (0.0-1.8); Total Cells Counted 100
[2017-11-30 08:03] LABS: Anisocytosis 1+; Hypochromasia 1+; Platelet Estimate Consistent w Auto
[2017-11-30] MEDS ORDERED: K-DUR PO ONE (08:55)
[2017-11-30] MEDS: SODIUM CHLORIDE FLUSH SYRINGE 10 ML IV SCH (09:31)
--- NOTE | 2017-11-30 11:02 | Discharge Summary ---
Providers - Providers Date of Admission: 11/28/17 23:53 Date of discharge: 11/30/17 Attending physician: MARKOS ALBARRAN 11/29/17 05:55 Consult to Physician [CONS] Routine Comment: Consulting Provider: DAVID WU Physician Instructions: Reason For Exam: DUB 11/29/17 08:14 Consult to Physician [CONS] Routine Comment: Consulting Provider: ANA ANTONIO Physician Instructions: Reason For Exam: severe anemia, thrombocytopenia and microcytosis Primary care physician: SYSTEMS QA ANALYST Hospitalization Condition: Stable Hospital course: Ms. Overton is a 41 yo woman with a history of chronic anemia, uterine Fibroids, Menorrhagia, Noncompliance with Iron therapy, Nicotine Dependence and ETOH Dependence who presented with weakness and [place]. She was found to have a hemoglobin of 2.5 with a MCV of 59, platelet count of 49. She was also hypotensive with bp 88/45 which she received normal saline IV fluid resuscitation bolus. She has received 4 units of prbc and 1 unit of platelet -Acute on chronic blood loss anemia: ordered FOBT==>negative, s/p 5 Units and 1 units of pharesis platelet transfusion -Menorrhagia: consulted senior qa engineer -Tobacco dependency: diet counselor on stopping -Alcohol dependency: ciwa protocol -Uterine Fibroids: pelvic and transvaginal u/s pending -Hypotension s/p fluid bolus resolved -Hypokalemia: replace, recheck in am -Thrombocytopenia s/p plt transfusion: consulted heme/onc -Suspect Iron Deficiency Anemia: ordered iron studies and Ferritin She complains about low back pains, throbbing, acute on chronic, had prior episode, no dysuria: Non-focal exam, no paraspinal tenderness, no CVA tenderness , will get xr and ua, if neg then d/c home I sat down and had a prolong discussion with Ms. Overton. She wants help trying to get Medicaid so that she can have surgery to remove the fibroids and I told her that I would call case management and they will give her the information, she became irate and stated, "I don't need no information, I need help, H.E.L.P. " She claims every doctor is telling her something different and nobody seems to know what is going on. She was very rude and disrespectful to me. After the second time she called me Mr. Albarran, I asked her to please refer to me as Dr. Albarran. Her reply, "you're man ain't evangelina?" I left it at that and proceed to discuss the plan with her. She referred to Dr. Antonio as "reinaldo short elma." Education and counseling done, It appears she is not really receptive to my advise and recommendations. I asked if she applied for ObamaCare and she became agitated, "you not listening to, I need help!" I have spoken with Oleksandr, case management to help patient. Disposition: DC-01 TO HOME OR SELFCARE Time spent for discharge: 35 minutes Core Measure Documentation - Palliative Care Palliative Care/ Comfort Measures: Not Applicable - Core Measures Any of the following diagnoses?: none - VTE Discharge Requirements Deep Vein Thrombosis/Pulmonary Embolism Present on Admission: No Has pt received <5 days of overlap therapy or INR<2.0: No Anticoagulant overlap therapy prescribed at discharge: No Contraindication No Overlap Therapy order at DC: Not Indicated Exam - Physical Exam Narrative exam: GEN: WDWN, NAD, Awake, Alert, Orientated x 3 HEENT: NCAT, EOMI, PERRL, OP Clear NECK: supple, no adenopathy, no thyromegaly, no JVD CVS/HEART: RRR, normal S1S2, pulses present bilaterally CHEST/LUNGS: CTA B, Symmetrical chest expansion, good air entry bilaterally GI/Abdomen: soft, NTND, good bowel sounds, no guarding or rebound /Bladder: no suprapubic tenderness, no CVA or paraspinal tenderness EXT/Skin: no c/c/e, no obvious rash MSK: FROM x 4 Neuro: CN 2-12 grossly intact, no new focal deficits Psych: calm - Constitutional Vitals: Temp Pulse Resp BP Pulse Ox 98.4 F 62 19 108/71 98 11/30/17 07:34 11/30/17 07:34 11/30/17 07:34 11/30/17 07:34 11/30/17 07:34 Plan Activity: other (no strenous activity including driving until cleared by deliver driver) Diet: regular Follow up with: PRIMARY CARE, [Primary Care Provider] - 3-5 Days DAVID WU MD [Staff Physician] - 7 Days ANA ANTONIO DO [Staff Physician] - 7 Days Prescriptions: Ferrous Sulfate [Ferrous Sulfate Oral Liq 300 Mg/5 Ml] 300 mg PO BID #300 ml Sennosides/Docusate Sodium [Senna-Docusate Sodium Tablet] 1 each PO BID #30 tablet
--- NOTE | 2017-11-30 12:43 | XRay Report ---
FINAL REPORT EXAM: XR SPINE LUMBOSACRAL 2-3V HISTORY: LBP TECHNIQUE: Two views of the lumbar spine PRIORS: None. FINDINGS: There is no evidence of acute fracture. Vertebral body heights and alignment are maintained. The intervertebral spaces are normal. SI joints are unremarkable. IMPRESSION: There is no significant abnormality identified.
[2017-11-30 14:05] LABS: Bacteria,Urine 1+ /HPF (Negative); Bilirubin,Urine NEG (Negative); Blood,Urine MOD (Negative); Color,Urine Yellow (Yellow); Mucus,Urine FEW /HPF; Protein,Urine <15 mg/dL mg/dL (Negative)
== END 2017-11-30 16:04 | disposition home or self-care (01) ==
LOC: ED 11:53 → 3A 23:53
PROVIDERS: ADMIT Internal Medicine; ATTEND Internal Medicine
DX: D50.0 Iron deficiency anemia secondary to blood loss (chronic) (principal); D25.9 Leiomyoma of uterus, unspecified; F17.200 Nicotine dependence, unspecified, uncomplicated; Z91.19 Patient's noncompliance with other medical treatment and regimen
CPT/HCPCS: 36415; 36430; 72100; 76830; 76856; 80053; 81001; 82270; 82728; 83550; 84702; 85007; 85025; 85027; 86850; 86900; 86901; 86920; 99285; G0378; J7030; J7040; P9016; P9035

== ENCOUNTER 2019-05-14 04:00 | Emergency (ER) | payer SELFPAY ==
--- NOTE | 2019-05-14 05:09 | XRay Report ---
LEFT KNEE 3 VIEWS. INDICATION / CLINICAL INFORMATION: pain and swelling S/P fall COMPARISON: None available. FINDINGS: BONES / JOINT(S): Anterior subluxation of the distal femur relative to the distal tibia suggesting li gamentous disruption. Mild irregularity is seen at the fibular head on 1 view only which may represen t a nondisplaced fracture. No apparent obtained. SOFT TISSUES: Small effusion. ADDITIONAL FINDINGS: None. Signer Name: Julio Cesar Tyler MD Signed: 05/14/2019 5:04 AM Workstation Name: [id number]
[2019-05-14] MEDS ORDERED: MORPHINE 4 MG/1 ML INJ ONE (05:13)
[2019-05-14] MEDS ORDERED: ONDANSETRON 4 MG/2 ML INJ ONE (05:13)
[2019-05-14] MEDS ORDERED: ONDANSETRON 4 MG/2 ML INJ IV ONE (05:13)
[2019-05-14] MEDS ORDERED: MORPHINE 4 MG/1 ML INJ IV ONE (05:13)
--- NOTE | 2019-05-14 05:36 | Emergency Department Report ---
<HODAN BARNES - Last Filed: 05/14/19 05:50> ED Lower Extremity HPI - General Chief Complaint: Extremity Injury, Lower Stated Complaint: RIGHT KNEE PAIN Source: patient, family, EMS Mode of arrival: Ambulatory Limitations: No Limitations - History of Present Illness Initial Comments: Ms. Overton is a 43 y/o aaf who presents for right knee pain s/p fall on street at approx 7 pm last night. pt is now unable to bear weight on right knee. pain is sharp 9/10 , there is mild swelling. There is no numbness or tingling, rom is restricted by pain. MD Complaint: knee injury Onset/Timin -: hour(s) Injury: Knee: Right (right anterior knee pain ) Type of Injury: blunt Place: street/outdoors Severity: moderate Severity scale (0 -10): 8 Improves With: nothing Worsens With: weight bearing, movement, palpation Context: fall Associated Symptoms: snap/pop sensation, swelling, unable to bear weight - Related Data Previous Rx's Medication Instructions Recorded Last Taken Type Ferrous Sulfate [Ferrous Sulfate 300 mg PO BID #300 ml 11/28/17 Unknown Rx Oral Liq 300 Mg/5 Ml] Sennosides/Docusate Sodium 1 each PO BID #30 tablet 11/28/17 Unknown Rx [Senna-Docusate Sodium Tablet] Ciprofloxacin HCl [Ciprofloxacin 500 mg PO BID #10 tablet 11/30/17 Unknown Rx TAB] oxyCODONE /ACETAMINOPHEN [Percocet 1 tab PO Q6HR PRN #15 tablet 05/14/19 Unknown Rx 5/325] Allergies Allergy/AdvReac Type Severity Reaction Status Date / Time No Known Allergies Allergy Verified 11/28/17 11:59 ED Review of Systems Constitutional: denies: chills, fever Eyes: denies: eye pain, eye discharge, vision change ENT: denies: ear pain, throat pain Respiratory: denies: cough, shortness of breath, wheezing Cardiovascular: denies: chest pain, palpitations Endocrine: no symptoms reported Gastrointestinal: denies: abdominal pain, nausea, diarrhea Genitourinary: as per HPI Musculoskeletal: joint swelling, other (knee pain deformity ) Skin: denies: rash, lesions Neurological: denies: headache, weakness, paresthesias Psychiatric: denies: anxiety, depression Hematological/Lymphatic: denies: easy bleeding, easy bruising ED Past Medical Hx - Past Medical History Previous Medical History?: Yes Additional medical history: FIBROIDS AND OVARIAN CYST - Surgical History Past Surgical History?: Yes Additional Surgical History: hernia repair - Social History Smoking Status: Current Every Day Smoker - Medications Home Medications: Home Medications Medication Instructions Recorded Confirmed Last Taken Type Ferrous Sulfate [Ferrous Sulfate 300 mg PO BID #300 ml 11/28/17 Unknown Rx Oral Liq 300 Mg/5 Ml] Sennosides/Docusate Sodium 1 each PO BID #30 tablet 11/28/17 Unknown Rx [Senna-Docusate Sodium Tablet] Ciprofloxacin HCl [Ciprofloxacin 500 mg PO BID #10 tablet 11/30/17 Unknown Rx TAB] oxyCODONE /ACETAMINOPHEN [Percocet 1 tab PO Q6HR PRN #15 tablet 05/14/19 Unknown Rx 5/325] ED Physical Exam - General Limitations: No Limitations General appearance: alert, in no apparent distress - Head Head exam: Present: atraumatic, normocephalic - Eye Eye exam: Present: normal appearance, PERRL, EOMI Pupils: Present: normal accommodation - ENT ENT exam: Present: mucous membranes moist - Neck Neck exam: Present: normal inspection - Respiratory Respiratory exam: Present: normal lung sounds bilaterally. Absent: respiratory distress - Cardiovascular Cardiovascular Exam: Present: regular rate, normal rhythm. Absent: systolic murmur, diastolic murmur, rubs, gallop - GI/Abdominal GI/Abdominal exam: Present: soft, normal bowel sounds - Rectal Rectal exam: Present: deferred - Extremities Exam Extremities exam: Present: tenderness, joint swelling - Expanded Lower Extremity Exam Right Knee exam: Present: tenderness, swelling, dislocation, pain w/ pronation/supination. Absent: posterior draw sign Neuro vascular tendon exam: Absent: pulse deficit, motor deficit, sensory deficit, tendon deficit Gait: Positive: unable to bear weight - Back Exam Back exam: Present: normal inspection, full ROM. Absent: tenderness - Neurological Exam Neurological exam: Present: alert, oriented X3, CN II-XII intact, reflexes normal. Absent: motor sensory deficit - Psychiatric Psychiatric exam: Present: normal affect, normal mood - Skin Skin exam: Present: warm, dry, intact, normal color. Absent: rash ED Course - Reevaluation(s) Reevaluation #1: pt given morphine 4mg, zofran 4mg, right knee reduction manual via tib/fib extension/distal femur traction, knee immobilizer placed placed, distal pulses verified via doppler, marked for repeat assessment via surgical pen for [place], pt tolerated procedure with minimal distress, pain is 2/10 tolerable for per patient. MRI ordered as requested per Ortho consult. will hand off to on coming, ED attending. 05/14/19 05:58 ED Lower Extremity MDM - Medical Decision Making 0500: consulted Dr. Álvarez Orthopedics recommendation: MRI, dx: subluxation right knee joint, pain medication, knee immobilizer, ED Disposition Clinical Impression: Subluxation of right knee, Traumatic rupture of posterior cruciate ligament of right knee Disposition: DC- TO HOME OR SELFCARE Condition: Stable Instructions: Posterior Cruciate Ligament Injury (ED), Knee Dislocation (GEN) Prescriptions: oxyCODONE /ACETAMINOPHEN [Percocet 5/325] 1 tab PO Q6HR PRN #15 tablet PRN Reason: Pain Referrals: HEBERT ÁLVAREZ MD [Staff Physician] - 3-5 Days <CECILIA TOVAR - Last Filed: 05/14/19 13:53> ED Review of Systems ROS: Stated complaint: RIGHT KNEE PAIN Other details as noted in HPI ED Course Vital Signs 05/14/19 05/14/19 04:09 10:55 Temperature 98.7 F Pulse Rate 83 74 Respiratory 14 16 Rate Blood Pressure 103/64 Blood Pressure 110/65 [Left] O2 Sat by Pulse 98 90 Oximetry ED Lower Extremity MDM - Lab Data Result diagrams: 05/14/19 Unknown 05/14/19 Unknown - Radiology Data Radiology results: report reviewed Anterior subluxation of the femur compared to tibia on the right knee radiographs: MRI: PCL complete rupture large effusion meniscus injury CTA lower extremity No popliteal vessel injury - Medical Decision Making I highly appreciate the assistance of Dr. Álvarez who evaluated the patient in the emergency department. He recommended maintaining the knee immobilizer in place as it is. I evaluated Mr. Overton after placement of right knee immobilizer. After knee mobilizer was placed, the extremity/right knee RLE is in acceptable alignment and extension with intact pedal pulses able to move and flex toes and ankles. Mr. Álvarez will follow Miss Overton in the outpatient setting. He deemed Ms. Overton stable for discharge. Prescribed Percocet for pain. Critical care attestation.: If time is entered above; I have spent that time in minutes in the direct care of this critically ill patient, excluding procedure time. ED Disposition Is pt being admited?: No Does the pt Need Aspirin: No
[2019-05-14 06:00] LABS: Alanine Aminotransferase 14 units/L (7-56); Albumin 4.3 g/dL (3.9-5); BUN/Creatinine Ratio 18; Blood Urea Nitrogen 9 mg/dL (7-17); Calcium 8.7 mg/dL (8.4-10.2); Hemolysis Index 5
[2019-05-14 06:05] LABS: Mean Corpuscular HGB Conc 28 % (30-34); Platelet Count 788 K/mm3 (140-440); Red Blood Count 4.08 M/mm3 (3.65-5.03)
[2019-05-14 06:08] LABS: Hemoglobin 6.7 gm/dl (10.1-14.3); Mean Corpuscular Volume 59 fl (79-97); Red Cell Distribution Width 35.8 % (13.2-15.2)
[2019-05-14 06:48] LABS: Band Neutrophils # (Manual) 0.2 K/mm3; Eosinophils % (Manual) 0 % (0.0-4.3); Hypochromasia 2+; Total Cells Counted 100
[2019-05-14 06:49] LABS: Anisocytosis 1+
[2019-05-14 06:51] LABS: Target Cells Rare; Tear Drop Cells Rare
[2019-05-14 06:52] LABS: Platelet Estimate Consistent w Auto; Poikilocytosis Few
--- NOTE | 2019-05-14 07:36 | XRay Report ---
RIGHT KNEE 4 VIEWS. INDICATION / CLINICAL INFORMATION: post reduction xray COMPARISON: Earlier the same day. FINDINGS: BONES / JOINT(S): Interval reduction of the knee. Alignment is satisfactory. A joint effusion is smal l. Mild irregularity remains at the fibular head worrisome for avulsion. Chronic avulsion adjacent to th e medial tibial plateau. SOFT TISSUES: No significant abnormality. ADDITIONAL FINDINGS: None. Signer Name: Julio Cesar Tyler MD Signed: 05/14/2019 7:32 AM Workstation Name: [id number]
[2019-05-14] MEDS ORDERED: HYDROmorphone 1 MG/1 ML INJ ONE (09:02)
[2019-05-14] MEDS ORDERED: HYDROmorphone 1 MG/1 ML INJ IV ONE (09:03)
--- NOTE | 2019-05-14 09:22 | Magnetic Resonance Report ---
MRI of the right knee without contrast. INDICATION / CLINICAL INFORMATION: knee subluxation. Severe right knee pain TECHNIQUE: Multiplanar, multisequence MR images were obtained. Routine MRI of the right knee without IV contrast . COMPARISON: None available. FINDINGS: There is a high-grade full-thickness tear identified involving the midsubstance of the PCL. There is severe posterior translation of the tibia with respect to the femur which corresponds to partial subl uxation secondary to be complete PCL tear. There is a large root avulsion type tear involving the pos terior horn of the medial meniscus. The anterior horn is subluxed anteriorly. There is a low-grade pa rtial thickness tear involving the midsubstance of the ACL. The lateral meniscus is grossly intact. T here is a large knee effusion. The extensor apparatus is grossly intact. There is a grade 2 MCL sprai n. A large amount of edema seen near the posterior lateral corner structures and underlying sprain is di fficult to completely exclude. IMPRESSION: 1. Complete rupture of the PCL, as above 2. Avulsion type tear with severe displacement involving the posterior root of the medial meniscus. 3. Grade 2 MCL sprain. 4. Large knee effusion with moderate posterior displacement of the tibia with respect to the femur co nsistent with severe ligamentous instability. 5. Significant edema is seen near the posterior lateral corner structures suggesting underlying injur y. I suspect there is at least a moderate sprain involving the lateral collateral ligament. Signer Name: Tomer Mcleod MD Signed: 05/14/2019 9:18 AM Workstation Name: [id number]
[2019-05-14 10:56] VITALS: BP 110/65
--- NOTE | 2019-05-14 11:36 | Cat Scan Report ---
CTA ABDOMEN, PELVIS AND LOWER EXTREMITIES HISTORY: Right knee dislocation. COMPARISON: None. TECHNIQUE: All CT scans at this location are performed using CT dose reduction for ALARA by means of automated exposure control. Routine postcontrast CT angiography of the abdomen, pelvis and lower extr emities performed. Multiplanar/MIP/3D reformats were post-processed on an independent free-standing w orkstation. CONTRAST: 100 ml of Omnipaque 350 FINDINGS: CTA ABDOMEN: Abdominal Aorta: No significant abnormality. Celiac Artery: No significant abnormality. Superior Mesenteric Artery: No significant abnormality. Renal Arteries: Right: No significant abnormality. Left: No significant abnormality. Inferior Mesenteric Artery: No significant abnormality. CTA PELVIS: RIGHT: Common Iliac Artery: No significant abnormality. Internal Iliac Artery: No significant abnormality. External Iliac Artery: No significant abnormality. LEFT: Common Iliac Artery: No significant abnormality. Internal Iliac Artery: No significant abnormality. External Iliac Artery: No significant abnormality. CTA LOWER EXTREMITIES: RIGHT LOWER EXTREMITY: Common Femoral Artery: No significant abnormality. Superficial Femoral Artery: No significant abnormality. Profunda Femoral Artery: No significant abnormality. Popliteal Artery: There is mild soft tissue edema around the peroneal artery but there is no discrete wall thickening, interval flap, or stenosis. Anterior Tibial Artery: No significant abnormality. Tibioperoneal Trunk: No significant abnormality. Posterior Tibial Artery: No significant abnormality. Peroneal Artery: No significant abnormality. Ankle runoff: Three vessel. LEFT LOWER EXTREMITY: Common Femoral Artery: No significant abnormality. Superficial Femoral Artery: No significant abnormality. Profunda Femoral Artery: No significant abnormality. Popliteal Artery: No significant abnormality. Anterior Tibial Artery: No significant abnormality. Tibioperoneal Trunk: No significant abnormality. Posterior Tibial Artery: No significant abnormality. Peroneal Artery: No significant abnormality. Ankle runoff: Three vessel. NONTARGET STRUCTURES: ABDOMEN: GI:No significant abnormality. :No significant abnormality. Lymphatics:No significant abnormality. PELVIS: :The uterus is enlarged and contains multiple uterine fibroids. There is also a tubular structure in the left adnexa which is enlarged that may represent a hydrosalpinx. LOWER EXTREMITIES: Musculoskeletal:There is a right large knee joint effusion. The tibia is laterally subluxed relative to the femur. There are avulsion bone fragments along the medial aspect of the tibia which may be se condary to avulsion injury at the level of the MCL insertion. There is also a mildly displaced avulsi on injury at the lateral collateral ligament complex insertion on the fibular head. Osseous Structures: No significant abnormality. Additional Findings: None IMPRESSION: 1. No evidence of arterial injury in the right popliteal artery on this exam. 2. Severe injuries in the right knee were better evaluated on the recent knee MRI. 3. Enlarged uterus with multiple uterine fibroids. 4. Suspected left hydrosalpinx, which can be evaluated with pelvic ultrasound on a nonemergent basis. Signer Name: Ulises Easley MD Signed: 05/14/2019 11:32 AM Workstation Name: [id number]
== END 2019-05-14 14:21 | disposition home or self-care (01) ==
LOC: ED 04:00
DX: S83.521A Sprain of posterior cruciate ligament of right knee, initial encounter (principal); Z79.899 Other long term (current) drug therapy; F17.200 Nicotine dependence, unspecified, uncomplicated; W22.8XXA Striking against or struck by other objects, initial encounter; Y93.89 Activity, other specified; Y92.488 Other paved roadways as the place of occurrence of the external cause; Y99.8 Other external cause status
CPT/HCPCS: 29505; 36415; 73562; 73721; 75635; 80053; 84703; 85007; 85025; 96374; 96375; 99285; J1170; J2270; J2405; Q9967

== ENCOUNTER 2021-06-12 02:45 | Emergency (ER) | payer SELFPAY ==
[2021-06-12] MEDS ORDERED: KETOROLAC 30 MG/1 ML INJ IM ONE (08:12)
--- NOTE | 2021-06-12 08:12 | Emergency Department Report ---
ED General Adult HPI - General Chief complaint: Pain General Stated complaint: LEGPAIN/NOT FEELING WELL Time Seen by Provider: 06/12/21 07:59 Source: patient Mode of arrival: Ambulatory Limitations: No Limitations - History of Present Illness Initial comments: Patient presents with bilateral leg pain. About a week or 10 days ago, she had an upper respiratory infection. She states that it got better and then seemed to "linger." She developed lower extremity pain. She describes an aching pain in both legs. This is diffuse in the legs. It does not specifically radiate or migrate. It is not localized to the upper or lower legs. It is worsened by movement and walking. 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 She is not sure if that has contributed. She thinks that she may have Covid and wants to be tested. She has had no known coronavirus exposure. She still has a taste and smell. She was not vaccinated against Covid. Patient was not concerned for influenza. She states that she does not have the flu. She then later tells me that she has a burning and tingling sensation in her legs. There is no history of polyuria or polydipsia. - Related Data Previous Rx's Medication Instructions Recorded Last Taken Type Ferrous Sulfate [Ferrous Sulfate 300 mg PO BID #300 ml 11/28/17 Unknown Rx Oral Liq 300 Mg/5 Ml] Sennosides/Docusate Sodium 1 each PO BID #30 tablet 11/28/17 Unknown Rx [Senna-Docusate Sodium Tablet] Ciprofloxacin HCl [Ciprofloxacin 500 mg PO BID #10 tablet 11/30/17 Unknown Rx TAB] oxyCODONE /ACETAMINOPHEN [Percocet 1 tab PO Q6HR PRN #15 tablet 05/14/19 Unknown Rx 5/325] Ibuprofen [Motrin] 800 mg PO Q8HR PRN #30 tablet 06/12/21 Unknown Rx Allergies Allergy/AdvReac Type Severity Reaction Status Date / Time No Known Allergies Allergy Verified 06/12/21 03:45 ED Review of Systems ROS: Stated complaint: LEGPAIN/NOT FEELING WELL Other details as noted in HPI Comment: All other systems reviewed and negative Constitutional: see HPI Eyes: denies: eye pain ENT: denies: throat pain Respiratory: see HPI Cardiovascular: denies: chest pain Endocrine: denies: unexplained weight loss Gastrointestinal: denies: abdominal pain Genitourinary: denies: dysuria Musculoskeletal: denies: back pain Skin: denies: rash Neurological: denies: headache Hematological/Lymphatic: denies: easy bruising ED Past Medical Hx - Past Medical History Previous Medical History?: No Additional medical history: FIBROIDS AND OVARIAN CYST - Surgical History Past Surgical History?: Yes Additional Surgical History: hernia repair - Family History Family history: no significant - Social History Smoking Status: Current Every Day Smoker - Medications Home Medications: Home Medications Medication Instructions Recorded Confirmed Last Taken Type Ferrous Sulfate [Ferrous Sulfate 300 mg PO BID #300 ml 11/28/17 Unknown Rx Oral Liq 300 Mg/5 Ml] Sennosides/Docusate Sodium 1 each PO BID #30 tablet 11/28/17 Unknown Rx [Senna-Docusate Sodium Tablet] Ciprofloxacin HCl [Ciprofloxacin 500 mg PO BID #10 tablet 11/30/17 Unknown Rx TAB] oxyCODONE /ACETAMINOPHEN [Percocet 1 tab PO Q6HR PRN #15 tablet 05/14/19 Unknown Rx 5/325] Ibuprofen [Motrin] 800 mg PO Q8HR PRN #30 tablet 06/12/21 Unknown Rx ED Physical Exam - General Limitations: No Limitations, Other (Pulse ox noted and normal) General appearance: alert, in no apparent distress - Head Head exam: Present: atraumatic, normocephalic - Eye Eye exam: Present: normal appearance, EOMI - ENT ENT exam: Present: normal orophraynx, normal external ear exam - Neck Neck exam: Present: normal inspection. Absent: meningismus - Respiratory Respiratory exam: Present: normal lung sounds bilaterally. Absent: respiratory distress - Cardiovascular Cardiovascular Exam: Present: regular rate, normal rhythm - GI/Abdominal GI/Abdominal exam: Present: soft. Absent: tenderness - Extremities Exam Extremities exam: Present: normal capillary refill, other (no ttp) - Back Exam Back exam: Present: full ROM - Neurological Exam Neurological exam: Present: alert, oriented X3 - Psychiatric Psychiatric exam: Present: normal affect, normal mood - Skin Skin exam: Present: warm, dry ED Course Vital Signs 06/12/21 03:44 Temperature 97.5 F L Pulse Rate 82 Respiratory 18 Rate Blood Pressure 107/68 O2 Sat by Pulse 98 Oximetry - Reevaluation(s) Reevaluation #1: 06/12/21 08:09 Patient was discharged. ED Medical Decision Making - Medical Decision Making No tenderness to palpation patient presents secondary to leg pain. There is no trauma associated with this. Has no fevers or chills currently. She was concern for coronavirus. We are not actively testing outpatients for coronavirus. She can go to the clinic across the street or any number of outpatient Covid testing facilities. At this time, there is no trauma that would suggest fracture. She has no petechial or purpuric rash suggestive of any type of infectious pathology. There is no warmth or erythema. She certainly has no swelling suggestive of DVT. She has no polydipsia or polyuria to suggest diabetes. Critical Care Time: No Critical care attestation.: If time is entered above; I have spent that time in minutes in the direct care of this critically ill patient, excluding procedure time. ED Disposition Clinical Impression: Leg pain, bilateral Disposition: HOME / SELF CARE / HOMELESS Is pt being admited?: No Condition: Stable Instructions: Pain Without a Known Cause Additional Instructions: ICE AND REST. SEE YOUR DOCTOR FOR RECHECK. Prescriptions: Ibuprofen [Motrin] 800 mg PO Q8HR PRN #30 tablet PRN Reason: Pain, Moderate (4-6) Referrals: PRIMARY CAREMD [Referring] - 3-5 Days MELISSA GANT MD [Staff Physician] - 3-5 Days
[2021-06-12 08:25] VITALS: BP 112/68
== END 2021-06-12 08:44 | disposition home or self-care (01) ==
LOC: ED 02:45
DX: M79.605 Pain in left leg (principal); M79.604 Pain in right leg; F17.200 Nicotine dependence, unspecified, uncomplicated
CPT/HCPCS: 99282; J1885